=== PATIENT | female | born 1965 | race Caucasian/White ===

== ENCOUNTER 2018-03-08 14:41 | Emergency (ER) | payer BC ==
[~2018-03-08] VITALS: Ht 162.6 cm; Wt 74.4 kg
[2018-03-08 15:32] VITALS: BP 110/65
== END 2018-03-08 16:47 | disposition home or self-care (01) ==
LOC: ER 14:41
DX: H66.92 Otitis media, unspecified, left ear (principal); N39.0 Urinary tract infection, site not specified; F17.210 Nicotine dependence, cigarettes, uncomplicated; E07.89 Other specified disorders of thyroid

== ENCOUNTER 2021-03-18 14:33 | Emergency (ER) | payer SELFPAY ==
[~2021-03-18] VITALS: Ht 172.7 cm; Wt 70.3 kg
[2021-03-18 14:35] VITALS: BP 114/55
== END 2021-03-18 20:26 | disposition home or self-care (01) ==
LOC: ER 14:33
DX: R06.02 Shortness of breath (principal); R51.9 Headache, unspecified; I10 Essential (primary) hypertension; F17.210 Nicotine dependence, cigarettes, uncomplicated; T50.B95A Adverse effect of other viral vaccines, initial encounter; Y92.89 Other specified places as the place of occurrence of the external cause; Z20.822 Contact with and (suspected) exposure to COVID-19
CPT/HCPCS: 36415; 71046; 87426; 93005

== ENCOUNTER 2022-02-26 10:58 | Emergency (ER) | payer OTHER ==
[~2022-02-26] VITALS: Ht 162.6 cm; Wt 68.3 kg
[2022-02-26 11:58] LABS: Eosinophils # (auto) 0 10 ^3/uL (0-0.8); Hemoglobin 11.2 g/dL (12.2-16.2); Mean Corpuscular Hemoglobin 24.1 pg (28.0-32.0); Mean Corpuscular Hgb Conc. 31.8 g/dL (32.0-36.0); Mean Corpuscular Volume 75.7 fL (80.0-100.0); White Blood Cell 11.3 10^3/uL (4.4-10.8)
[2022-02-26 12:00] LABS: Basophils # (auto) 0.1 10 ^3/uL (0-0.2); Basophils % (auto) 0.6 % (0.0-2.0); Eosinophils % (auto) 0.4 % (0.0-7.0); Hematocrit 35.1 % (36.0-46.0); Lymphocytes # (auto) 1.9 10 ^3/uL (0.4-5.4); Lymphocytes % (auto) 16.4 % (10.0-50.0); Monocytes # (auto) 0.7 10 ^3/uL (0-1.3); Monocytes % (auto) 6.6 % (0.0-12.0); Neutrophils # (auto) 8.6 10 ^3/uL (1.6-8.6); Red Blood Cells 4.64 10^6/uL (4.0-5.20)
[2022-02-26 12:15] LABS: Albumin 3.5 g/dL (3.4-5.0); Calcium 6.7 mg/dL (8.5-10.1); Magnesium 2.1 mg/dL (1.6-2.6); Potassium 3.6 mmol/L (3.5-5.1)
[2022-02-26 12:17] LABS: BUN/Creatinine Ratio 17.5; Bilirubin, Total 0.4 mg/dL (0.2-1.0); Total Protein 6.9 g/dL (6.4-8.2)
[2022-02-26] MEDS ORDERED: carBAMazepine 200 MG TAB PO ONE ×2 (15:45)
[2022-02-26] MEDS: CALCIUM GLUC 1,000mg/50ml-NS 50 ML IV SCH ×2 (15:52→17:08)
[2022-02-26] MEDS ORDERED: HYDROcodone-ACET 10/325MG TAB PO ONE (18:45)
[2022-02-26 20:43] VITALS: BP 114/65
== END 2022-02-26 20:50 | disposition short-term general hospital (02) ==
LOC: ER 11:04
DX: R41.82 Altered mental status, unspecified (principal); F17.210 Nicotine dependence, cigarettes, uncomplicated; I10 Essential (primary) hypertension; Z20.822 Contact with and (suspected) exposure to COVID-19
CPT/HCPCS: 36415; 70450; 80053; 82310; 83735; 85025; 87426; 96365; 99285; J0610

== ENCOUNTER 2024-05-15 16:20 | Emergency (ER) | payer SELFPAY ==
[~2024-05-15] VITALS: Ht 160 cm; Wt 82.7 kg
--- NOTE | 2024-05-15 17:06 | ED.PDOC ---
History of Present Illness HPI Comments Christine Mcghee is a 58-year-old female patient who presents to ED with chief complaint of face, hand and leg swelling which started in the past week associated with dyspnea and functional class II, generalized fatigue more than usual and lower back pain intensity 5/10. Patient also reports over one week ago presented maculopapular rash which was very pruriginous and located and chest in both arms, but was self-limited. Denies chest pain, palpitation, syncope, nausea, vomiting, diarrhea, fever, chills, recent travel, sick contacts and motor or sensory deficits. Past medical history: CKD, hypothyroidism and hypocalcemia secondary to thyroidectomy due to thyroid nodule, asthma, restless legs syndrome, fibromyalgia, depression, endometriosis status post partial hysterectomy Surgical history: Thyroidectomy 02/2024, three eye surgeries, tonsillectomy, bilateral tubal ligation, partial hysterectomy, gastric bypass Social history: Lives in [place] with . Current smoker (20 pack-year history of smoking). Denies current alcohol and other drug abuse. Allergies: Penicillin Home medication: Calcium, vitamin-D, cyclobenzaprine, amitriptyline, sertraline, pramipexole, furosemide, albuterol, levothyroxine 150 mcg p.o. daily Chief Complaint: Extremity Swelling Time Seen by MD: 16:23 Primary Care Provider: AQUILINO STANLEY Allergies: Coded Allergies: Penicillins (Verified Allergy, Unknown, 03/18/21) Mode of Arrival: Ambulatory Past Medical History PAST MEDICAL HISTORY: HTN, Thyroid Surgical History: Denies all surgeries KITCHEN HAND History: Endometriosis Family History Family History: Reviewed,noncontributory to illness Social History Smoker: Cigarettes Alcohol: Denies ETOH Use Drugs: Denies Drug Use Lives In: Home Physical Exam General Appearance: No Apparent Distress, Normal HEENT: Normal ENT Inspection, Pharynx Normal, TMs Normal Neck: Full Range of Motion, Non-Tender, Normal, Normal Inspection Respiratory: Chest Non-Tender, Lungs Clear, No Accessory Muscle Use, No Respiratory Distress, Normal Breath Sounds Cardiovascular: No Edema, No JVD, No Murmur, No Gallop, Normal Peripheral Pulses, Regular Rate/Rhythm Breast Exam: Deferred Gastrointestinal: No Organomegaly, Non Tender, No Pulsatile Mass, Normal Bowel Sounds, Soft Genitalia: Deferred Pelvic: Deferred Rectal: Deferred Extremities: No calf tenderness, Normal capillary refill, Normal inspection, Normal range of motion, Non-tender, No pedal edema Neurologic: Alert, last turner II-XII nml as Tested, No Motor Deficits, Normal Affect, Normal Mood, No Sensory Deficits Cerebellar Function: Normal Reflexes: Normal Skin: Lacerations, Normal Color, Rash (Resolved rash, currently presents scabs and pruriginous lesions), Warm, Wounds Lymphatic: No Adenopathy Was a procedure done? Was a procedure done?: No Differential Dx Considerations may include: Electrolyte alteration, ARVIND, congestive heart failure, liver cirrhosis X-Ray, Labs, Meds, VS Vital Signs Date Time Temp Pulse Resp B/P (MAP) Pulse Ox O2 Delivery O2 Flow Rate FiO2 05/15/24 16:30 97.3 81 16 117/81 (93) 100 Lab Test 05/15/24 17:19 Range/Units White Blood Count 7.5 4.4-10.8 10^3/uL Red Blood Count 4.26 4.0-5.20 10^6/uL Hemoglobin 10.8 L 12.2-16.2 g/dL Hematocrit 33.6 L 36.0-46.0 % Mean Corpuscular Volume 78.8 L 80.0-100.0 fL Mean Corpuscular Hemoglobin 25.4 L 28.0-32.0 pg Mean Corpuscular Hemoglobin Concent 32.2 32.0-36.0 g/dL Red Cell Distribution Width 20.0 H 11.8-14.3 % Platelet Count 318 140-450 10^3/uL Mean Platelet Volume 8.2 6.9-10.8 fL Neutrophils (%) (Auto) 53.1 37.0-80.0 % Lymphocytes (%) (Auto) 31.2 10.0-50.0 % Monocytes (%) (Auto) 6.0 0.0-12.0 % Eosinophils (%) (Auto) 8.7 H 0.0-7.0 % Basophils (%) (Auto) 1.0 0.0-2.0 % Neutrophils # (Auto) 4.0 1.6-8.6 10 ^3/uL Lymphocytes # (Auto) 2.3 0.4-5.4 10 ^3/uL Monocytes # (Auto) 0.4 0-1.3 10 ^3/uL Eosinophils # (Auto) 0.6 0-0.8 10 ^3/uL Basophils # (Auto) 0.1 0-0.2 10 ^3/uL Nucleated Red Blood Cells 0.2 % Sodium Level 142 136-145 mmol/L Potassium Level 3.4 L 3.5-5.1 mmol/L Chloride Level 104 98-107 mmol/L Carbon Dioxide Level 27 20-31 mmol/L Anion Gap 11 5-15 Blood Urea Nitrogen 13 9-23 mg/dL Creatinine 1.58 H 0.550-1.02 mg/dL Glomerular Filtration Rate Calc 38 >90 mL/min BUN/Creatinine Ratio 8.2 L 10.0-20.0 Serum Glucose 87 74-106 mg/dL Calcium Level 9.0 8.7-10.4 mg/dL Phosphorus Level 4.2 2.4-5.1 mg/dL Magnesium Level 2.3 1.6-2.6 mg/dL Thyroid Stimulating Hormone (TSH) Pending X-Ray, Labs, Meds, VS Comment Ordered laboratory workup Time of 1ST Reevaluation: 19:55 Reevaluation 1ST: Unchanged Patient Education/Counseling: Diagnosis, Treatment, Prognosis, Need For Follow Up Family Education/Counseling: Diagnosis, Treatment, Prognosis, Need For Follow Up Departure 1 Departure Time of Disposition: 19:55 Impression: Primary Impression: Chronic kidney disease Additional Impression: Hypokalemia Disposition: HOME / SELF CARE / HOMELESS Condition: Stable Additional Instructions: Reviewed vital signs, complimentary work up. Patient has elevated creatinine (1.52) and hyperkalemia (3.4). Pending TSH value. No evidence of edema on physical examination. Recommended to continue with furosemide PO and administer K pill, and follow up with PCP (Dr Gold from [facility]). PAtient hemodynamically stable, asymptomatic, in conditions to be discharged home. Was granted under optimal medical therapy, gave advice on healthy life style habits and follow up as outpatient with PCP for reevaluation of potassium and creatinine. Recommend follow up to review TSH Critical Care Note Critical Care Time?: No Stability Stability form required: No Heart Score Heart Score: Heart Score Response (Comments) Value History N/A 0 EKG N/A 0 Age N/A 0 Risk Factors N/A 0 Troponin N/A 0 Total 0 IVAN WATSON RESIDENT May 15, 2024 17:06
[2024-05-15 17:37] LABS: Basophils # (auto) 0.1 10 ^3/uL (0-0.2); Eosinophils # (auto) 0.6 10 ^3/uL (0-0.8); Eosinophils % (auto) 8.7 % (0.0-7.0); Hematocrit 33.6 % (36.0-46.0); Hemoglobin 10.8 g/dL (12.2-16.2); Lymphocytes # (auto) 2.3 10 ^3/uL (0.4-5.4); Lymphocytes % (auto) 31.2 % (10.0-50.0); Mean Corpuscular Hemoglobin 25.4 pg (28.0-32.0); Mean Corpuscular Hgb Conc. 32.2 g/dL (32.0-36.0); Mean Corpuscular Volume 78.8 fL (80.0-100.0); Monocytes # (auto) 0.4 10 ^3/uL (0-1.3); Neutrophils % (auto) 53.1 % (37.0-80.0); Nucleated Red Blood Cells % 0.2 %; Platelet Count (auto) 318 10^3/uL (140-450); Red Blood Cells 4.26 10^6/uL (4.0-5.20); White Blood Cell 7.5 10^3/uL (4.4-10.8)
[2024-05-15 18:00] LABS: Chloride 104 mmol/L (98-107); Sodium 142 mmol/L (136-145)
[2024-05-15 18:01] LABS: Anion Gap 11 (5-15); Carbon Dioxide 27 mmol/L (20-31)
[2024-05-15 18:06] LABS: Glucose 87 mg/dL (74-106)
[2024-05-15 18:07] LABS: BUN/Creatinine Ratio 8.2 (10.0-20.0); Blood Urea Nitrogen 13 mg/dL (9-23); Magnesium 2.3 mg/dL (1.6-2.6)
[2024-05-15 18:09] LABS: Phosphorus 4.2 mg/dL (2.4-5.1)
[2024-05-15 18:20] LABS: Potassium 3.4 mmol/L (3.5-5.1)
[2024-05-15] MEDS ORDERED: POTA-36 PO (20:00)
[2024-05-15] MEDS: POTASSIUM EFFERVESENT TAB 25 MEQ PO ONE (20:25)
[2024-05-15 20:27] VITALS: BP 106/58; PULSE 83; RESP 18; TEMP 98.6; O2SAT 96
== END 2024-05-15 20:33 | disposition home or self-care (01) ==
LOC: ER 16:21
DX: I12.9 Hypertensive chronic kidney disease with stage 1 through stage 4 chronic kidney disease, or unspecified chronic kidney disease (principal); N18.9 Chronic kidney disease, unspecified; E87.6 Hypokalemia; R53.83 Other fatigue; M54.50 Low back pain, unspecified; E03.9 Hypothyroidism, unspecified; F17.210 Nicotine dependence, cigarettes, uncomplicated; Z88.0 Allergy status to penicillin
CPT/HCPCS: 36415; 80048; 83735; 84100; 84443; 85025